=== PATIENT | female | born 1955 | race Caucasian/White ===

== ENCOUNTER → 2018-12-16 | Outpatient (CLI) | payer BC ==
--- NOTE | 2018-12-16 15:57 | PCVCIMAG ---
APPROVED REPORT Study performed: 12/16/2018 14:11:06 EXAM: Comprehensive 2D, Doppler, and color-flow Echocardiogram Patient Location: Echo lab Room #: 2Status: routine BSA: 1.46 HR: 65 bpmBP: 110/66 mmHg Rhythm: NSR Other Information Study Quality: Good Risk Factors: Cardiac Risk Factors: HTN, Hyperlipidemia Indications Pre-Op CAD Elevated coronary calcium score 2D Dimensions IVSd: 6.61 (7-11mm)LVOT Diam: 17.88 (18-24mm) LVDd: 37.55 mm PWd: 7.38 (7-11mm)Ascending Ao: 24.01 (22-36mm) LVDs: 19.00 (25-40mm) Left Atrium: 25.29 (27-40mm) Aortic Root: 20.59 mm LV Single Plane 4CH: 55.13 % LV Single Plane 2CH: 67.82 % Biplane EF: 62.3 % Volumes Left Atrial Volume (Systole) Single Plane 4CH: 29.48 mLSingle Plane 2CH: 19.18 mL Biplane LA Volume: 26.00 mLLA ESV Index: 18.00 mL/m2 Aortic Valve AoV Peak Clint.: 1.43 m/s AO Peak Gr.: 8.21 mmHgLVOT Max P.30 mmHg LVOT Max V: 1.04 m/s JOI Vmax: 1.82 cm2 Mitral Valve E/A Ratio: 1.0 MV Decel. Time: 185.23 ms MV E Max Clint.: 0.95 m/s MV A Clint.: 0.96 m/s Pulmonary Valve PV Peak Clint.: 0.88 m/sPV Peak Gr.: 3.13 mmHg Pulmonary Vein P Vein S: 0.62 m/sP Vein A: 0.27 m/s P Vein D: 0.37 m/sP Vein A Dur.: 76.1 msec P Vein S/D Ratio: 1.68 Tricuspid Valve TR Peak Clint.: 2.69 m/s TR Peak Gr.: 28.88 mmHg TV Vmax: 0.78 m/sPA Pressure: 36.00 mmHg Left Ventricle The left ventricle is normal size. There is normal LV segmental wall motion. There is normal left ventricular wall thickness. Left ventricular systolic function is normal. The left ventricular ejection fraction is within the normal range. LVEF is 60-65%. Right Ventricle The right ventricle is normal size. The right ventricular systolic function is normal. Atria The left atrium size is normal. The right atrium size is normal. Aortic Valve Aortic valve is trileaflet. The aortic valve is normal in structure and function. No aortic regurgitation is present. There is no aortic valvular stenosis. Mitral Valve The mitral valve is normal in structure. There is no mitral valve regurgitation noted. No evidence of mitral valve stenosis. Tricuspid Valve The tricuspid valve is normal in structure. Mild to moderate tricuspid regurgitation with a PA pressure of 30mmHg. Pulmonic Valve The pulmonary valve is normal in structure. There is no pulmonic valvular regurgitation. Great Vessels The aortic root is normal in size. The ascending aorta is normal in size. Aortic arch is normal in caliber. IVC is normal in size and collapses >50% with inspiration. Pericardium There is no pericardial effusion. There is no pleural effusion. <Conclusion> The left ventricle is normal size. There is normal left ventricular wall thickness. Left ventricular systolic function is normal. The right ventricle is normal size. The left atrium size is normal. The aortic valve is normal in structure and function. The mitral valve is normal in structure. Mild to moderate tricuspid regurgitation with a PA pressure of 30mmHg.
--- NOTE | 2018-12-16 15:59 | PCVCIMAG ---
APPROVED REPORT Study performed: 12/16/2018 14:35:35 Exam: Stress Echocardiogram Indication: CAD , Pre-Operative CV evaluation Patient Location: Echo lab Stress Nurse: Yandy Guzman RN Room #: 2 Status: routine Ht: 4 ft 11 in HR: 67 bpm BP: 110/66 mmHg Rhythm: NSR Medical History Medical History: CAD non obstructive Previous Cardiac Procedures: none Pretest Chest Pain Characteristics: No chest pain Exercise History: Physically active Procedure The patient underwent an Exercise Stress Test using the Mendel Protocol. Blood pressure, heart rate, and EKG were monitored. An Echocardiogram was performed by power technician in four stages in quad fashion. At peak stress, four selected images were obtained and placed side by side with resting images for comparison. Stress Test Details Stress Test: Exercise stress testing was performed using a Mendel protocol. HR Resting HR: 67 bpmMax Heart Rate (APMHR): 157 bpm Max HR Achieved: 181 bpmTarget HR (85% APMHR): 133 bpm % of APMHR: 115 Recovery HR: 102 bpm HR response to stress: Normal HR response to stress BP Resting BP: 110/66 mmHg Max BP: 164/70 mmHg Recovery BP: 112/78 mmHg BP response to stress: Normal blood pressure response to stress. ECG Resting ECG: Sinus Rhythm Stress ECG: Sinus Rhythm, nonspecific ST-T abnormalities ST Change: Non-ischemic Arrhythmia: Rare PAC,PVCs Recovery ECG: Sinus Rhythm, nonspecific ST-T abnormalities Recovery ST Change: Non-ischemic Recovery ST Deviation: -0.85 mm Recovery Arrhythmia: None Clinical Reason for Termination: Maximal effort Stress Symptoms: fatigue Exercise duration: 10 min 04 sec Highest Stage Achieved: Stage 4: 4.2 mph at 16% grade. Exercise capacity: 13.4 METs Overall Exercise Capacity for Age: Excellent Scale: Active Angina Score: None No complications. Stress ECG Conclusion The patient exercised according to the MENDEL protocol for 10:04 mins; achieving a work level of 13.4 METS. The resting heart rate of 67 bpm ronel to a maximum heart rate of 181 bpm. This value represent 115% of the maximal, age-predicted heart rate. The resting blood pressure of 110/66 mmHg, ronel to a maximum blood pressure of 164/70 mmHg. The exercise test was stopped due to fatigue. Pre-Stress Echo The resting Echocardiogram showed normal left ventricular contractility with an estimated Ejection Fraction of about 55-60%. Normal wall motion in all segments on baseline images. Post-Stress Echo The stress Echocardiogram showed normal left ventricular contractility with an estimated Ejection Fraction of about 65-70%. Normal augmentation of wall motion in all segments on post stress images. Clinical No clinical or ECG evidence for ischemia. Conclusion Clinical Response: Non-ischemic Exercise Capacity: Above Average Stress ECG Response: Non-ischemic Stress Echo Images: Non-ischemic No clinical, EKG or echocardiographic evidence for ischemia. <Conclusion> No clinical, EKG or echocardiographic evidence for ischemia.
== END | disposition home or self-care (01) ==
LOC: PCVCIMAG 13:57
PROVIDERS: ATTEND Internal Medicine Cardiovascular Disease
DX: Z01.810 Encounter for preprocedural cardiovascular examination (principal); I07.1 Rheumatic tricuspid insufficiency; I10 Essential (primary) hypertension; Z88.0 Allergy status to penicillin
CPT/HCPCS: 93306; 93351